=== PATIENT | male | born 1995 | race Caucasian/White ===

== ENCOUNTER 2020-01-04 11:27 | Emergency (ER) | payer OTHER, BC, SELFPAY ==
[2020-01-04 11:29] VITALS: BP 147/80; PULSE 76; RESP 16; TEMP 36.6; O2SAT 100; BMI 29.5
[2020-01-04 11:35] VITALS: BMI 29.7
--- NOTE | 2020-01-04 11:36 | XR_ITS ---
PROCEDURE: XR HAND LT MIN 3V CLINICAL INDICATION: smacked hand Posttraumatic pain COMPARISON: No exams were available for comparison FINDINGS: No fracture or dislocation. No lytic or blastic change. There is normal mineralization. The joint spaces are well-preserved. No significant degenerative/arthritic changes. No erosive changes evident. Other findings:None. IMPRESSION: No acute findings. Dictated by: Brandyn Person MD 01/04/2020 13:04 Brandyn Person MD in [place] 01/04/2020 13:04
--- NOTE | 2020-01-04 11:51 | HMH.EDGENADL ---
ED Disposition Clinical Impression: Contusion of left hand Qualifiers: Encounter type: initial encounter Qualified Code(s): S60.222A - Contusion of left hand, initial encounter Disposition: Home, Self-Care Condition on Discharge: Good Instructions: DI for Hand Injury Referrals: PCP,Barbara [Primary Care Provider] - Time of Disposition: 12:46 - Critical Care Critical Care Time: No Attestation: On 01/04/20, the high probability of a clinically significant, sudden or life threatening deterioration of the following system(s) required my full and direct attention, intervention and personal management. The time I documented below is in addition to time spent performing reported procedures but includes the following listed in this critical care notation. Medical Decision Making - Medical Records Medical records reviewed: Yes: I reviewed the patient's medical records. - [place] Inquiry Pt receiving controlled substance: No Vital Signs: 01/04/20 11:29 01/04/20 11:59 Temperature 98 F Temperature Source Temporal Artery Scan Pulse Rate [Right] 76 73 Respiratory Rate 16 Blood Pressure [Right Arm] 147/80 H 132/81 Blood Pressure Mean [Right Arm] 102 98 Blood Pressure Source [Right Arm] Automatic Cuff Automatic Cuff Blood Pressure Position [Right Arm] Sitting Sitting 02 Sat by Pulse Oximetry 100 99 Oxygen Delivery Method Room Air Orders (Tests/Meds): ORDERS Category Date Time Status Hand XR left minimum 3 views [XR hand LT min 3V] Stat Exams 01/04/20 11:36 Taken - Radiology Data #1 Image(s): Hand Image Reviewed: Yes I reviewed the patient's radiology image Preliminary Findings: Normal/NAD Osseous structures unremarkable. Particularly no abnormality of the third or fourth metacarpals. No significant joint deformity. No fracture or dislocation. Medical Decision Narrative: In summary this is a 24-year-old male presenting to the emergency department with an injury to his left hand. Patient is overall well-appearing on arrival to the emergency department. Vital signs are stable. Differential diagnoses include metacarpal fracture or contusion. Plan to obtain x-rays and reassess. X-rays unremarkable. No fracture or dislocation. Patient instructed that he likely has a contusion, sprain, strain. May take Tylenol and ibuprofen. Stable for discharge. General Adult HPI - General Chief complaint: PAIN Stated complaint: left hand AO hit on desk 01/03/20 4:00 pm Time Seen by Provider: 01/04/20 11:43 Mode of Arrival: Ambulatory Limitations: No Limitations Description of Symptoms (Recalled from ER Triage Doc. by RN): Pt advises he smacked the counter at work yesterday working and has is having increased pain in it today - History of Present Illness HPI narrative: 24 year old ambidextrous male presenting to the emergency department with an injury to his left hand. Patient was at work earlier today when the back of his left hand struck against a hard piece of equipment. He had immediate pain over the dorsal aspect. Pain radiated into his middle and ring fingers. He had difficulty moving his fingers. No pain with wrist motion. No breaks in the skin. Has not taken any medications for pain. - Related Data Home Medications Medication Instructions Recorded Confirmed No Known Home Medications 01/04/20 01/04/20 Allergies Allergy/AdvReac Type Severity Reaction Status Date / Time cefaclor [From [facility]] Allergy Mild Verified 01/04/20 11:40 [facility] History - Hepatitis A Screen Drug use history?: No High risk sexual behaviors?: No History of sexually transmitted infection?: No Currently employed?: No Childcare worker?: No Do you have indoor plumbing?: Yes Do you have electricity?: Yes Attestation statement:: This patient has been screened for Hepatitis A risk factors. - Social History Alcohol Intake: never Occupational Status: employed ROS Obtained: Yes All systems reviewed & no
[2020-01-04 11:59] VITALS: BP 132/81; PULSE 73; O2SAT 99
[2020-01-04 13:35] VITALS: BP 120/87; PULSE 80; RESP 17; TEMP 36.7; O2SAT 100
== END 2020-01-04 13:35 | disposition home or self-care (01) ==
PROVIDERS: Emergency Provider Emergency Medicine
DX: S60.222A Contusion of left hand, initial encounter (principal); W22.8XXA Striking against or struck by other objects, initial encounter; Y92.69 Other specified industrial and construction area as the place of occurrence of the external cause; Y99.0 Civilian activity done for income or pay; Z88.1 Allergy status to other antibiotic agents
CPT/HCPCS: 73130; 99282

== ENCOUNTER 2020-07-07 15:24 | Emergency (ER) | payer BC, SELFPAY ==
[2020-07-07 15:50] VITALS: BP 146/80; PULSE 91; RESP 16; TEMP 36.9; O2SAT 96; BMI 31.6
--- NOTE | 2020-07-07 16:06 | HMH.EDUTC ---
[facility] [place] Dis[place] Clinical Impression: Influenza A, COVID-19 virus RNA test result unknown Disposition: Home, Self-Care Condition on Discharge: Good Instructions: Influenza, DI for Influenza -- Adult, DI for COVID-19 (Suspected or Confirmed ), Preventing the Spread of Coronavirus Discharge Instructions Additional Instructions: No sign of a bacterial infection. Likely viral. Viruses can take 7-14 days to run their course. Nasal saline and bulb syringe or nose Brenda to remove nasal drainage to help with nasal congestion. Hard to eat, drink, sleep with nasal congestion so important to keep this cleaned out. Monitor temp. Tylenol or Motrin as needed for pain or fever Encourage fluids, water, Gatorade, Powerade, Pedialyte if infant/toddler/child Warm salt water gargles Warm fluids Sore throat lozenges Sleep elevated Humidifier/vaporizer Your throat swab was sent for culture. covid swab was sent self siolate until test results are known to be neg Follow-up immediately for new or worsening symptoms or no noticeable improvement over the next 48-72 hours. Referrals: PCP,No [Primary Care Provider] - Forms: Work/School Release Time of Disposition: 16:12 Medical Decision Making - [place] Inquiry Pt receiving controlled substance: No Vital Signs: 07/07/20 15:50 Temperature 98.5 F Temperature Source Oral Pulse Rate [Right] 91 H Respiratory Rate 16 Blood Pressure [Right Arm] 146/80 H Blood Pressure Mean [Right Arm] 102 Blood Pressure Source [Right Arm] Automatic Cuff Blood Pressure Position [Right Arm] Sitting 02 Sat by Pulse Oximetry 96 Oxygen Delivery Method Room Air Orders (Tests/Meds): ORDERS Category Date Time Status Covid-19 Nasal PCR ([facility]) Routine Lab 07/07/20 15:28 Ordered [facility] [place] HPI - General Chief complaint: Urgent Treatment Center Stated complaint: covid test Time Seen by Provider: 07/07/20 16:06 Mode of Arrival: Ambulatory Source of Information: Patient Limitations: No Limitations Description of Symptoms (Recalled from Triage Doc. by RN): PT IS HAVING DIZZINESS, COUGH, NASAL CONGESTION, DIARHEA AND A SORE THROAT. HEENT Symptoms (Recalled from RN notes): Yes (SORE THROAT) Resp Symptoms (Recalled from RN notes): Yes (COUGH) Skin Symptoms (Recalled from RN notes): No MS Symptoms (Recalled from RN notes): No Functional Status (Recalled from RN notes): NA - History of Present Illness Provider Complaint: 24 yr old female presents for cough, sore throat, body aches, headache, nausea and diarrhea for 3 days. - Related Data Home Medications Medication Instructions Recorded Confirmed No Known Home Medications 01/04/20 01/04/20 Allergies Allergy/AdvReac Type Severity Reaction Status Date / Time cefaclor [From [facility]] Allergy Mild Verified 07/07/20 15:56 - Worker's Comp Is this a Worker's Comp case?: No [facility] History - Hepatitis A Screen Drug use history?: No High risk sexual behaviors?: No History of sexually transmitted infection?: No Currently employed?: No Childcare worker?: No Do you have indoor plumbing?: Yes Do you have electricity?: Yes Attestation statement:: This patient has been screened for Hepatitis A risk factors. I have reviewed the patient's past medical history: Yes - Social History Smoking Status: Current every day smoker Tobacco Type: e-cigarettes # Packs/Day (cigarettes): 1 Alcohol Intake: never Occupational Status: employed ROS Obtained: Yes Systems reviewed as appropriate & no additional complaints - Constitutional Constitutional: Reports system reviewed and no additional complaints, except as docu, Reports body ache, Reports chills, Reports fatigue, Reports fever(s) - Eyes Eyes: Reports system reviewed and no additional complaints, except as docu, Denies dry eyes - ENT Ears, Nose, Mouth, and Throat: Reports system reviewed and no additional complaints, except as docu, Reports dizziness, Reports ear discharge, Denies facial pain, Reports
[2020-07-07 16:51] VITALS: BP 140/78; PULSE 98; RESP 16; TEMP 36.7
[2020-07-08 10:13] LABS: UTC Strep Screen (Rapid) Negative (Negative)
[2020-07-08 10:14] LABS: UTC Influenza A Antigen Negative (Negative); UTC Influenza B Antigen Negative (Negative)
--- NOTE | 2020-07-08 10:19 | PC.NURSE ---
PATIENT FLU A POSITIVE, DOCUMENTED IN CHART NEG
== END 2020-07-07 16:52 | disposition home or self-care (01) ==
PROVIDERS: Emergency Provider Nurse Practitioner Family
DX: J10.1 Influenza due to other identified influenza virus with other respiratory manifestations (principal); Z20.822 Contact with and (suspected) exposure to COVID-19; F17.290 Nicotine dependence, other tobacco product, uncomplicated
CPT/HCPCS: 87804; 87880; 99202; G0463; U0003

== ENCOUNTER → 2020-08-27 17:49 | Outpatient (CLI) | payer BC, SELFPAY ==
[2020-08-27 18:31] LABS: Basophils % 0.4 % (0.1-2.0); Eosinophils # 0.2 K/mm3 (0.0-0.4); Eosinophils % 1.6 % (0.1-12.0); Hematocrit 44.6 % (42.0-52.0); Hemoglobin 14.4 g/dL (14.1-18.0); Lymphocytes % 20.9 % (10-50); Mean Corpuscular HGB Conc 32.2 g/dL (31.8-35.4); Mean Corpuscular Volume 89.9 fl (80-94); Mean Platelet Volume 7.9 fl (7.4-10.4); Monocytes # 0.8 K/mm3 (0.1-1.0); Monocytes % 8.8 % (1.7-9.3); Neutrophils # 6.4 K/mm3 (1.8-7.8); Neutrophils % 68.3 % (37.0-80.0); Platelet Count 288 K/mm3 (142-424); Red Blood Count 4.96 M/mm3 (4.60-6.20); Red Cell Distribution Width 12.4 % (11.5-17.5); White Blood Count 9.4 K/mm3 (4.8-10.8)
[2020-08-27 18:47] LABS: Alanine Aminotransferase 16 U/L (12-78); Albumin Level 4.9 g/dl (3.5-5.0); Albumin/Globulin Ratio 1.7 (1.1-1.8); Alkaline Phosphatase 72 U/L (38-126); Anion Gap 9.8 mEq/L (5-15); Aspartate Amino Transferase 28 U/L (17-59); Bilirubin,Total 0.3 mg/dl (0.2-1.3); Blood Urea Nitrogen 16 mg/dl (9-20); Calcium 10.3 mg/dl (8.4-10.2); Carbon Dioxide 29 mmol/L (22.0-30.0); Chloride 106 mmol/L (98-107); Estimated Glomerular Filt Rate 92 ml/min (>60); GFR (African American) 111 ML/MIN (>60); Globulin 2.9 g/dL (1.3-3.2); Glucose 76 mg/dl (74-100); Potassium 4.8 mmoL/L (3.5-5.1); Sodium 140 mmol/L (136-145); Total Protein,Serum 7.8 g/dl (6.3-8.2)
[2020-08-27 19:15] LABS: Thyroid Stimulating Hormone 2.62 uIU/mL (0.465-4.68)
[2020-08-31 13:40] LABS: H. pylori Breath Test Negative (Negative)
== END ==
LOC: LAB 17:49
PROVIDERS: Visit Provider Nurse Practitioner Family
DX: R10.9 Unspecified abdominal pain (principal); R53.83 Other fatigue
CPT/HCPCS: 36415; 80053; 83013; 84436; 84443; 85025

== ENCOUNTER → 2020-08-28 09:50 | Outpatient (CLI) | payer BC, SELFPAY ==
[2020-08-28 09:52] LABS: Adenovirus F 40/41, stool Not Detected (NotDetected); Astrovirus Not Detected (NotDetected); Campylobacter Not Detected (NotDetected); Clostridium Difficile A/B, PCR Not Detected (NotDetected); Cryptosporidium Not Detected (NotDetected); Cyclospora Cayetanesis Not Detected (NotDetected); Entamoeba histolytica Not Detected (NotDetected); Enteroaggregative E coli Not Detected (NotDetected); Enteropathogenic E coli Not Detected (NotDetected); Enterotoxigenic E coli Not Detected (NotDetected); Giardia lamblia Not Detected (NotDetected); Norovirus Not Detected (NotDetected); Plesimonas Shigalloides, PCR Not Detected (NotDetected); Rotavirus A Not Detected (NotDetected); Salmonella, PCR Not Detected (NotDetected); Sapovirus Not Detected (NotDetected); Shiga-like toxin E coli Not Detected (NotDetected); Shigella Enterovasive E coli Not Detected (NotDetected); Vibrio Cholerae Not Detected (NotDetected); Vibrio, PCR Not Detected (NotDetected); Yersinia Entercolitica, PCR Not Detected (NotDetected)
== END ==
PROVIDERS: Visit Provider Nurse Practitioner Family
DX: R19.7 Diarrhea, unspecified (principal)
CPT/HCPCS: 87506

== ENCOUNTER 2020-09-28 15:44 | Emergency (ER) | payer BC, SELFPAY ==
[2020-09-28 15:48] VITALS: BP 148/82; PULSE 104; RESP 19; TEMP 36.8; O2SAT 99; BMI 27.4
[2020-09-28 16:20] VITALS: BP 148/82; PULSE 104; RESP 19; TEMP 36.8; O2SAT 99
--- NOTE | 2020-09-28 16:45 | HMH.EDUTC ---
[facility] – [place] Disposition Clinical Impression: Pharyngitis Qualifiers: Pharyngitis/tonsillitis etiology: unspecified etiology Qualified Code(s): J02.9 - Acute pharyngitis, unspecified Irritable bowel syndrome Qualifiers: Irritable bowel syndrome type: unspecified Qualified Code(s): K58.9 - Irritable bowel syndrome without diarrhea Disposition: Home, Self-Care Condition on Discharge: Good Instructions: DI for Pharyngitis/Tonsillopharyngitis -- Adult, DI for Irritable Bowel Syndrome Additional Instructions: Drink plenty of fluids. Take tylenol or ibuprofen for pain or fever. Take the medications as directed. Follow up with your regular doctor. GO TO THE ER FOR ANY WORSENING SYMPTOMS Follow up with GI as scheduled. Prescriptions: Ondansetron [Zofran 4mg ODT] 4 mg PO Q8HP PRN #20 tab.rapdis PRN Reason: Nausea Transmission Status: Received by [id number] Dicyclomine HCl [Bentyl 10mg capsule] 10 mg PO BIDP PRN #30 cap PRN Reason: Cramping Transmission Status: Received by [id number] Referrals: Cece Dillard APRN [Primary Care Provider] - Forms: Work/School Release Time of Disposition: 17:02 Medical Decision Making - Medical Records Medical records reviewed: No: I reviewed the patient's medical records. - [place] Inquiry Pt receiving controlled substance: No Vital Signs: 09/28/20 15:48 09/28/20 16:20 Temperature 98.3 F 98.3 F Temperature Source Oral Pulse Rate 104 H Pulse Rate [Left] 104 H Respiratory Rate 19 19 Blood Pressure 148/82 H Blood Pressure [Right Arm] 148/82 H Blood Pressure Mean [Right Arm] 104 02 Sat by Pulse Oximetry 99 - Lab Data Lab results reviewed: Yes: I reviewed the patient's lab results. Lab Results 09/28/20 16:20: Strep Scn Rapid Clinic Negative Orders (Tests/Meds): ORDERS Category Date Time Status Strep Screen Confirmation Stat Micro 09/28/20 16:20 Received [facility] – [place] HPI - General Stated complaint: stomach issues, congestion Time Seen by Provider: 09/28/20 16:45 Mode of Arrival: Ambulatory Source of Information: Patient Limitations: No Limitations Description of Symptoms (Recalled from Triage Doc. by RN): Pt states that he has been seein Cece for stomach issues and he is still having trouble with constipation and diarrhea. Pt also c/o headaches, cough and congestion. HEENT Symptoms (Recalled from RN notes): No Resp Symptoms (Recalled from RN notes): Yes Skin Symptoms (Recalled from RN notes): No MS Symptoms (Recalled from RN notes): No Functional Status (Recalled from RN notes): wnl - History of Present Illness Provider Complaint: He c/o sore throat for the past 2 days. HE has had long standing issues with nausea/diarrhea/constipation. He has an appt with a GI doctor at coming up in December. - Related Data Previous Rx's Medication Instructions Recorded Dicyclomine HCl [Bentyl 10mg 10 mg PO BIDP PRN #30 cap 09/28/20 capsule] Ondansetron [Zofran 4mg ODT] 4 mg PO Q8HP PRN #20 tab.rapdis 09/28/20 Allergies Allergy/AdvReac Type Severity Reaction Status Date / Time cefaclor [From [facility]] Allergy Mild Verified 09/28/20 16:19 - Worker's Comp Is this a Worker's Comp case?: No [facility] History - Hepatitis A Screen Drug use history?: No High risk sexual behaviors?: No History of sexually transmitted infection?: No Currently employed?: No Childcare worker?: No Do you have indoor plumbing?: Yes Do you have electricity?: Yes Attestation statement:: This patient has been screened for Hepatitis A risk factors. I have reviewed the patient's past medical history: Yes Laterality Cases: Bilateral: Tonsillectomy - Social History Smoking Status: Never smoker Tobacco Type: cigarettes # Packs/Day (cigarettes): 1 Alcohol Intake: never Occupational Status: employed Family Hx:: Cancer, Diabetes ROS Obtained: Yes All systems reviewed & no additional complaints - Constitutional Constitu
[2020-09-28 17:06] LABS: UTC Strep Screen (Rapid) Negative (Negative)
== END 2020-09-28 17:07 | disposition home or self-care (01) ==
PROVIDERS: Emergency Provider Nurse Practitioner Family; PCP Nurse Practitioner Family
DX: J02.9 Acute pharyngitis, unspecified (principal); K58.9 Irritable bowel syndrome, unspecified; Z20.822 Contact with and (suspected) exposure to COVID-19
CPT/HCPCS: 87880; 99202; G0463; U0003

== ENCOUNTER 2020-10-21 12:27 | Emergency (ER) | payer BC, SELFPAY ==
[2020-10-21 12:27] VITALS: BP 112/74; PULSE 78; RESP 16; TEMP 36.7; O2SAT 98; BMI 276700.2
[2020-10-21 12:30] VITALS: BP 129/72; PULSE 65; RESP 19; TEMP 37; O2SAT 99; BMI 27.6
--- NOTE | 2020-10-21 12:50 | HMH.EDUTC ---
[facility] – [place] Disposition Clinical Impression: Abdominal pain Qualifiers: Abdominal location: left lower quadrant Qualified Code(s): R10.32 - Left lower quadrant pain Disposition: Still a Patient Condition on Discharge: Fair Referrals: Cece Dillard APRN [Primary Care Provider] - Time of Disposition: 13:18 Medical Decision Making - Medical Records Medical records reviewed: No: I reviewed the patient's medical records. - [place] Inquiry Pt receiving controlled substance: No Vital Signs: 10/21/20 12:30 Temperature 98.6 F Temperature Source Oral Pulse Rate [Right Brachial] 65 Respiratory Rate 19 Blood Pressure [Right Arm] 129/72 Blood Pressure Mean [Right Arm] 91 Blood Pressure Source [Right Arm] Automatic Cuff Blood Pressure Position [Right Arm] Sitting 02 Sat by Pulse Oximetry 99 Oxygen Delivery Method Room Air Orders (Tests/Meds): ORDERS Category Date Time Status Amylase Stat Lab 10/21/20 13:07 Ordered Complete Blood Count Auto Diff Stat Lab 10/21/20 13:07 Ordered Comprehensive Metabolic Panel Stat Lab 10/21/20 13:07 Ordered Lipase Stat Lab 10/21/20 13:07 Ordered [facility] [place] HPI - General Stated complaint: nausea, Lt side pain Time Seen by Provider: 10/21/20 12:52 - History of Present Illness Provider Complaint: He has a history of chronic gi issues. He states that for the past 3 days he has had left sided abdominal pain and tenderness. He has these symptoms often, but he states that this time they are much worse than they normally are. He has been taking bentyl with no relief. He has also had nauesea/vomiting. He has taken zofran and it has helped that symptom. He denies any fever/chills/body aches. He has had diarrhea, but he has chronic diarrhea. - Related Data Previous Rx's Medication Instructions Recorded Dicyclomine HCl [Bentyl 10mg 10 mg PO BIDP PRN #30 cap 09/28/20 capsule] Ondansetron [Zofran 4mg ODT] 4 mg PO Q8HP PRN #20 tab.rapdis 09/28/20 Allergies Allergy/AdvReac Type Severity Reaction Status Date / Time cefaclor [From [facility] [place]] Allergy Mild Verified 09/28/20 16:19 [facility] History - Hepatitis A Screen Attestation statement:: This patient has been screened for Hepatitis A risk factors. I have reviewed the patient's past medical history: Yes Laterality Cases: Bilateral: Tonsillectomy - Social History Smoking Status: Never smoker Tobacco Type: cigarettes # Packs/Day (cigarettes): 1 Alcohol Intake: never Occupational Status: employed Family Hx:: Cancer, Diabetes ROS Obtained: Yes All systems reviewed & no additional complaints - Constitutional Constitutional: Denies chills, Denies fever(s), Reports poor appetite, Reports malaise - Eyes Eyes: Denies eye discharge - ENT Ears, Nose, Mouth, and Throat: Denies dizziness, Denies otalgia, Denies sore throat, Denies vertigo/dizziness - Respiratory Respiratory: Denies chest congestion, Denies cough, Denies dyspnea, Denies stridor, Denies wheezing - Gastrointestinal Gastrointestingal: Reports: as per HPI Physical Exam - General General appearance: alert, in no apparent distress - Head Head exam: atraumatic, normocephalic, normal inspection - Eye Eye exam: Present: normal appearance, PERRL, EOMI - ENT ENT exam: Present: normal exam, normal oropharynx, mucous membranes moist, TM's normal bilaterally, normal external ear exam - Neck Neck exam: Present: normal inspection, full ROM, trachea midline. Absent: meningismus, lymphadenopathy - Chest Chest inspection: Present: normal inspection, symmetric chest wall rise. Absent: tenderness - Respiratory Respiratory exam: Present: normal lung sounds bilaterally. Absent: respiratory distress - Cardiovascular Cardiovascular exam: Present: regular rate, normal rhythm. Absent: JVD - Abdominal Exam Abdominal exam: Present: soft, tenderness, normal bowel sounds. Absent: distention, guarding, rebound, rigidity, psoas sign, obturator sign, heel tap s
--- NOTE | 2020-10-21 13:18 | CT_ITS ---
PROCEDURE: CT ABDOMEN PELVIS W CON CLINICAL INDICATION: ABD PAIN Abdominal pain with nausea vomiting and diarrhea COMPARISON: No exams were available for comparison TECHNIQUE: IV Contrast: 75ML Isovue 370 Oral Contrast None Axial images obtained with sagittal and coronal reformats. All CT scans at the facility use one or more dose reduction, viz: automated exposure control, ma/kV adjustment per patient size (including targeted exams where dose is matched to indication, i.e. head), or iterative reconstruction technique. FINDINGS: LOWER THORAX: Patchy density left lung base posterior laterally nonspecific. ABDOMEN & PELVIS: The liver, spleen, adrenal glands, pancreas, and kidneys have an unremarkable appearance. No radiopaque gallstones are apparent. No intestinal obstruction or free air. No evidence of appendicitis. No pelvic mass or abnormal fluid collection. No acute bony findings. IMPRESSION: No acute abdominal or pelvic findings. Patchy ground-glass attenuation in the left lower lobe posterior laterally nonspecific and could be related to small area of atelectasis or patchy infiltrate Dictated by: Brandyn Person MD 10/21/2020 13:46 Brandyn Person MD in [place] 10/21/2020 13:46
--- NOTE | 2020-10-21 13:25 | PC.NURSE ---
PATIENT SENT TO ER PER Liliana ORTEGA APRN. REPORT GIVEN TO Carole CRAIN RN
[2020-10-21 13:33] LABS: Basophils % 0.4 % (0.1-2.0); Eosinophils # 0.2 K/mm3 (0.0-0.4); Eosinophils % 2.5 % (0.1-12.0); Hematocrit 46.3 % (42.0-52.0); Hemoglobin 15.6 g/dL (14.1-18.0); Lymphocytes # 1.2 K/mm3 (0.7-4.5); Lymphocytes % 17.8 % (10-50); Mean Corpuscular HGB Conc 33.6 g/dL (31.8-35.4); Mean Corpuscular Hemoglobin 29.9 pg (27.0-31.2); Mean Corpuscular Volume 88.9 fl (80-94); Mean Platelet Volume 7.7 fl (7.4-10.4); Monocytes # 0.5 K/mm3 (0.1-1.0); Monocytes % 7.8 % (1.7-9.3); Neutrophils # 4.9 K/mm3 (1.8-7.8); Neutrophils % 71.5 % (37.0-80.0); Platelet Count 275 K/mm3 (142-424); Red Blood Count 5.21 M/mm3 (4.60-6.20); Red Cell Distribution Width 12.5 % (11.5-17.5); White Blood Count 6.8 K/mm3 (4.8-10.8)
[2020-10-21 13:33] LABS: Microscopic, Urine URINE MICROSCOPIC (MICROSCOPIC)
[2020-10-21 13:35] LABS: Alanine Aminotransferase 24 U/L (12-78); Albumin Level 4.9 g/dl (3.5-5.0); Albumin/Globulin Ratio 1.4 (1.1-1.8); Alkaline Phosphatase 94 U/L (38-126); Amylase 72 U/L (30-110); Anion Gap 11.3 mEq/L (5-15); Aspartate Amino Transferase 37 U/L (17-59); Bilirubin,Total 0.8 mg/dl (0.2-1.3); Blood Urea Nitrogen 14 mg/dl (9-20); Calcium 9.7 mg/dl (8.4-10.2); Carbon Dioxide 29 mmol/L (22.0-30.0); Chloride 105 mmol/L (98-107); Creatinine Clearance Estimated 148 mL/min (50-200); Estimated Glomerular Filt Rate 104 ml/min (>60); GFR (African American) 125 ML/MIN (>60); Globulin 3.4 g/dL (1.3-3.2); Glucose 102 mg/dl (74-100); Lipase 29 U/L (23-300); Potassium 4.3 mmoL/L (3.5-5.1); Sodium 141 mmol/L (136-145); Total Protein,Serum 8.3 g/dl (6.3-8.2)
--- NOTE | 2020-10-21 13:35 | HMH.EDGENADL ---
ED Disposition Clinical Impression: Irritable bowel syndrome Qualifiers: Irritable bowel syndrome type: with both diarrhea and constipation Qualified Code(s): K58.2 - Mixed irritable bowel syndrome Disposition: Home, Self-Care Condition on Discharge: Good Instructions: DI for Irritable Bowel Syndrome Additional Instructions: Follow-up with your primary care provider for management until you are seen by gastroenterology at [facility] in December. Referrals: Cece Dillard APRN [Primary Care Provider] - - Critical Care Critical Care Time: No Attestation: On 10/21/20, the high probability of a clinically significant, sudden or life threatening deterioration of the following system(s) required my full and direct attention, intervention and personal management. The time I documented below is in addition to time spent performing reported procedures but includes the following listed in this critical care notation. Medical Decision Making - Medical Records Medical records reviewed: Yes: I reviewed the patient's medical records. MR Comment: Reviewed recent hospital and office visits. Seen in his primary care provider's office on 08/27/2020 for loss of appetite and diarrhea. Thyroid panel CBC, H. pylori breath test, and diarrhea panel ordered. Work-up negative. Seen in the office again on 09/10/2020. Lower abdominal pain and now with constipation rather than diarrhea. Also had anxiety. Refer to behavioral health and gastroenterology. Seen in the urgent treatment center here on 09/28/2020. Sore throat along with nausea, diarrhea, constipation. Diagnosed with irritable bowel syndrome and recommended to keep his appointment with gastroenterology at [facility] in December. Prescribed Zofran and Bentyl. - [place] Inquiry Pt receiving controlled substance: No Vital Signs: 10/21/20 12:30 Temperature 98.6 F Temperature Source Oral Pulse Rate [Right Brachial] 65 Respiratory Rate 19 Blood Pressure [Right Arm] 129/72 Blood Pressure Mean [Right Arm] 91 Blood Pressure Source [Right Arm] Automatic Cuff Blood Pressure Position [Right Arm] Sitting 02 Sat by Pulse Oximetry 99 Oxygen Delivery Method Room Air - Lab Data Lab Results 10/21/20 13:15: WBC 6.8, RBC 5.21, Hgb 15.6, Hct 46.3, MCV 88.9, MCH 29.9, MCHC 33.6, RDW 12.5, Plt Count 275, MPV 7.7, Neut % (Auto) 71.5, Lymph % (Auto) 17.8, [place] % (Auto) 7.8, Eos % (Auto) 2.5, Baso % (Auto) 0.4, Neut # (Auto) 4.9, Lymph # (Auto) 1.2, [place] # (Auto) 0.5, Eos # (Auto) 0.2, Baso # (Auto) 0.0 10/21/20 13:15: Sodium 141, Potassium 4.3, Chloride 105, Carbon Dioxide 29, Anion Gap 11.3, BUN 14, Creatinine 0.90, Estimated Creat Clear 148, Estimated GFR 104, Est GFR ( Amer) 125, Glucose 102 H, Calcium 9.7, Total Bilirubin 0.8, AST 37, ALT 24, Alkaline Phosphatase 94, Total Protein 8.3 H, Albumin 4.9, Globulin 3.4 H, Albumin/Globulin Ratio 1.4, Amylase 72, Lipase 29 10/21/20 13:30: Urine Color Yellow, Urine Appearance Clear, Urine pH 8.0, Ur Specific [place] 1.010, Urine Protein Negative, Urine Glucose (UA) Negative, Urine Ketones Negative, Urine Blood Negative, Urine Nitrate Negative, Urine Bilirubin Negative, Urine Urobilinogen 1.0, Ur Leukocyte Esterase Negative, Urine RBC Occasional, Urine WBC Occasional, Ur Squamous Epith Cells None, Urine Bacteria Trace Result diagrams: 10/21/20 13:15 10/21/20 13:15 Orders (Tests/Meds): ED MEDICATIONS Discontinued Medications Generic Name Dose Route Start Last Admin Trade Name Freq PRN Reason Stop Dose Admin Iopamidol 75 ml 10/21/20 13:31 10/21/20 13:32 Iopamidol-370 (76%);100ml Bottle IV 10/21/20 13:32 75 ml ONCE ONE Administration Sodium Chloride 10 ml 10/21/20 13:31 10/21/20 13:32 Sodium Chloride 0.9% 10ml Syr (Rad Only) IV 10/21/20 13:32 10 ml ONCE ONE Administration - CT Data CT Scan: Abdomen, Pelvis Time Received: 13:[address] Reviewed: Yes: I have viewed the radiologist's interpretat
--- NOTE | 2020-10-21 13:38 | PC.NURSE ---
Pt back from radiology
[2020-10-21 13:41] LABS: Appearance,Urine CLEAR (Clear); Bilirubin,Urine Negative (Negative); Blood, Urine Negative (Negative); Color,Urine YELLOW (Yellow); Glucose,Urine (UA) Negative (Negative); Ketones,Urine Negative (Negative); Leukocyte Esterase,Urine Negative (Negative); Nitrate,Urine Negative (Negative); Protein,Urine Negative (Negative)
[2020-10-21 13:56] LABS: WBC,Urine Occasional #/hpf (0-3)
[2020-10-21 13:57] LABS: Bacteria,Urine Trace /lpf; RBC,Urine Occasional #/hpf (0-3)
[2020-10-21 14:23] VITALS: BP 132/74; PULSE 78; RESP 16; TEMP 36.6; O2SAT 98
== END 2020-10-21 14:24 | disposition home or self-care (01) ==
LOC: UTC 12:30 → ER 13:17
PROVIDERS: Emergency Medicine; Emergency Provider Nurse Practitioner Family; PCP Nurse Practitioner Family
DX: K58.2 Mixed irritable bowel syndrome (principal)
CPT/HCPCS: 74177; 80053; 81001; 82150; 83690; 85025; 99283; Q9967

== ENCOUNTER → 2020-12-21 15:16 | Outpatient (POV) | payer BC, SELFPAY | PROVIDERS: Visit Provider Nurse Practitioner Family | DX: Z00.00 Encounter for general adult medical examination without abnormal findings (principal) ==

== ENCOUNTER 2021-01-08 15:47 | Emergency (ER) | payer BC, SELFPAY ==
[2021-01-08 18:30] VITALS: BP 134/75; PULSE 69; RESP 19; TEMP 37.1; O2SAT 99; BMI 19.3
--- NOTE | 2021-01-08 19:01 | HMH.EDUTC ---
[facility] [place] Clinical Impression: Exposure to COVID-19 virus, Viral syndrome Disposition: Home, Self-Care Condition on Discharge: Good Instructions: DI for Viral Syndrome, DI for COVID-19 (Suspected or Confirmed ), Preventing the Spread of Coronavirus Discharge Instructions Additional Instructions: Drink plenty of fluids. Take tylenol for pain or fever. Return if you begin to have difficulty breathing. Follow up with your regular doctor. GO TO THE ER FOR ANY WORSENING SYMPTOMS Quarantine until you know the results of your covid-19 test. If it is positive, the health department should call you and give you further instructions about your length of Quarantine and other things. Notify your school or workplace of your results and follow their instructions regarding return to work/school. Prescriptions: Brompheniramine/Pseudoephed/Dm [Bromfed Dm Cough Syrup] 5 ml PO Q6HP PRN #240 syrup PRN Reason: Cough Transmission Status: Received by [id number] predniSONE [Deltasone 10mg tablet] 10 mg PO BID 5 Days #10 tab Transmission Status: Received by [id number] Azithromycin [Z-Richard 250mg Tab*] 250 mg PO UD DOSE PK #6 tab Transmission Status: Received by [id number] Referrals: Cece Dillard APRN [Primary Care Provider] - Forms: Work/School Release Time of Disposition: 19:09 Medical Decision Making - Medical Records Medical records reviewed: No: I reviewed the patient's medical records. - [place] Inquiry Pt receiving controlled substance: No Vital Signs: 01/08/21 18:30 01/08/21 19:13 Temperature 98.8 F 98.8 F Temperature Source Oral Pulse Rate 69 Pulse Rate [Right Brachial] 69 Respiratory Rate 19 19 Blood Pressure 134/75 Blood Pressure [Right Arm] 134/75 Blood Pressure Mean [Right Arm] 94 Blood Pressure Source [Right Arm] Automatic Cuff Blood Pressure Position [Right Arm] Sitting 02 Sat by Pulse Oximetry 99 Oxygen Delivery Method Room Air [facility] [place] HPI - General Stated complaint: covid test Time Seen by Provider: 01/08/21 19:01 Mode of Arrival: Ambulatory Source of Information: Patient Limitations: No Limitations Description of Symptoms (Recalled from Triage Doc. by RN): COVID TEST D/T EXPOSURE HEENT Symptoms (Recalled from RN notes): No Resp Symptoms (Recalled from RN notes): No Skin Symptoms (Recalled from RN notes): No MS Symptoms (Recalled from RN notes): No Functional Status (Recalled from RN notes): WNL - History of Present Illness Provider Complaint: He was exposed to covid last week, He denies any symptoms, but he needs to be tested due to his work - Related Data Previous Rx's Medication Instructions Recorded Dicyclomine HCl [Bentyl 10mg 10 mg PO BIDP PRN #30 cap 09/28/20 capsule] albuterol sulfate 90 mcg/actuation 1 puff INHALATION Q6H #6.7 g 10/21/20 aerosol inhaler omeprazole magnesium 20 mg 20 mg PO DAILY #30 tab 11/01/20 tablet,delayed release ondansetron 4 mg disintegrating 4 mg PO Q8HP PRN #20 tab.rapdis 11/25/20 tablet Azithromycin [Z-Richard 250mg Tab*] 250 mg PO UD DOSE PK #6 tab 01/08/21 Brompheniramine/Pseudoephed/Dm 5 ml PO Q6HP PRN #240 syrup 01/08/21 [Bromfed Dm Cough Syrup] predniSONE [Deltasone 10mg tablet] 10 mg PO BID 5 Days #10 tab 01/08/21 Allergies Allergy/AdvReac Type Severity Reaction Status Date / Time cefaclor [From [facility]] Allergy Mild Verified 11/25/20 15:21 - Worker's Comp Is this a Worker's Comp case?: No H History - Hepatitis A Screen Drug use history?: No High risk sexual behaviors?: No History of sexually transmitted infection?: No Currently employed?: No Childcare worker?: No Do you have indoor plumbing?: Yes Do you have electricity?: Yes Attestation statement:: This patient has been screened for Hepatitis A risk factors. I have reviewed the patient's past medical history: Yes Laterality Cases: Bilateral: Tonsillectomy - Social History Smoking Status: Never s
[2021-01-08 19:13] VITALS: BP 134/75; PULSE 69; RESP 19; TEMP 37.1; O2SAT 99
== END 2021-01-08 19:19 | disposition home or self-care (01) ==
PROVIDERS: Emergency Provider Nurse Practitioner Family; PCP Nurse Practitioner Family
DX: Z20.822 Contact with and (suspected) exposure to COVID-19 (principal); B34.9 Viral infection, unspecified
CPT/HCPCS: 99202; G0463; U0003

== ENCOUNTER 2021-02-01 12:46 | Emergency (ER) | payer BC, SELFPAY ==
[2021-02-01 14:01] VITALS: PULSE 78; RESP 16; TEMP 37; O2SAT 100; BMI 24.6
--- NOTE | 2021-02-01 14:06 | HMH.EDUTC ---
[facility] [place] Disposition Clinical Impression: Exposure to COVID-19 virus Pharyngitis Qualifiers: Pharyngitis/tonsillitis etiology: unspecified etiology Qualified Code(s): J02.9 - Acute pharyngitis, unspecified Disposition: Home, Self-Care Condition on Discharge: Good Instructions: DI for COVID-19 (Suspected or Confirmed ), Preventing the Spread of Coronavirus Discharge Instructions Additional Instructions: Drink plenty of fluids. Take tylenol or ibuprofen for pain or fever. Take the medications as directed. Follow up with your regular doctor. GO TO THE ER FOR ANY WORSENING SYMPTOMS Throw your tooth brush away and get a new one. Quarantine until you know the results of your covid-19 test. If it is positive, the health department should call you and give you further instructions about your length of Quarantine and other things. Notify your school or workplace of your results and follow their instructions regarding return to work/school. Prescriptions: Brompheniramine/Pseudoephed/Dm [Bromfed Dm Cough Syrup] 5 ml PO Q6HP PRN #240 ml PRN Reason: Cough Transmission Status: Received by [id number] Azithromycin [Z-Richard 250mg Tab*] 250 mg PO UD DOSE PK #6 tab Transmission Status: Received by [id number] Referrals: Cece Dillard APRN [Primary Care Provider] - Forms: Work/School Release Time of Disposition: 14:44 Medical Decision Making - Medical Records Medical records reviewed: No: I reviewed the patient's medical records. - [place] Inquiry Pt receiving controlled substance: No Vital Signs: 02/01/21 14:01 02/01/21 14:47 Temperature 98.6 F 98.6 F Temperature Source Oral Pulse Rate 74 Pulse Rate [Right] 78 Respiratory Rate 16 16 Blood Pressure 0/0 L 02 Sat by Pulse Oximetry 100 Oxygen Delivery Method Room Air Room Air - Lab Data Lab results reviewed: Yes: I reviewed the patient's lab results. Lab Results 02/01/21 14:03: Strep Scn Rapid Clinic Negative Orders (Tests/Meds): ORDERS Category Date Time Status Strep Screen Confirmation Stat Micro 02/01/21 14:03 Received [facility] [place] HPI - General Stated complaint: possible strep Time Seen by Provider: 02/01/21 14:06 Mode of Arrival: Ambulatory Source of Information: Patient Limitations: No Limitations Description of Symptoms (Recalled from Triage Doc. by RN): pt positive for strep last week and advises he feels worse this week HEENT Symptoms (Recalled from RN notes): Yes Resp Symptoms (Recalled from RN notes): No Skin Symptoms (Recalled from RN notes): No MS Symptoms (Recalled from RN notes): No Functional Status (Recalled from RN notes): na - History of Present Illness Provider Complaint: He was diagnosed with strep throat last week. He has been taking the medications as directed. He denies any known covid-19 exposure. - Related Data Previous Rx's Medication Instructions Recorded Dicyclomine HCl [Bentyl 10mg 10 mg PO BIDP PRN #30 cap 09/28/20 capsule] albuterol sulfate 90 mcg/actuation 1 puff INHALATION Q6H #6.7 g 10/21/20 aerosol inhaler omeprazole magnesium 20 mg 20 mg PO DAILY #30 tab 11/01/20 tablet,delayed release ondansetron 4 mg disintegrating 4 mg PO Q8HP PRN #20 tab.rapdis 11/25/20 tablet Azithromycin [Z-Richard 250mg Tab*] 250 mg PO UD DOSE PK #6 tab 01/08/21 Brompheniramine/Pseudoephed/Dm 5 ml PO Q6HP PRN #240 syrup 01/08/21 [Bromfed Dm Cough Syrup] predniSONE [Deltasone 10mg tablet] 10 mg PO BID 5 Days #10 tab 01/08/21 Azithromycin [Z-Richard 250mg Tab*] 250 mg PO UD DOSE PK #6 tab 02/01/21 Brompheniramine/Pseudoephed/Dm 5 ml PO Q6HP PRN #240 ml 02/01/21 [Bromfed Dm Cough Syrup] Allergies Allergy/AdvReac Type Severity Reaction Status Date / Time [facility] Allergy Mild Verified 11/25/20 15:21 - Worker's Comp Is this a Worker's Comp case?: No [facility] History - Hepatitis A Screen Drug use history?: No High risk sexual behaviors?: No History of sexually
[2021-02-01 14:47] VITALS: BP 0/0; PULSE 74; RESP 16; TEMP 37; O2SAT 98
[2021-02-01 14:53] LABS: UTC Strep Screen (Rapid) Negative (Negative)
== END 2021-02-01 14:48 | disposition home or self-care (01) ==
PROVIDERS: Emergency Provider Nurse Practitioner Family; PCP Nurse Practitioner Family
DX: J02.9 Acute pharyngitis, unspecified (principal); Z20.822 Contact with and (suspected) exposure to COVID-19
CPT/HCPCS: 87880; 99203; C9803; G0463; U0003; U0005

== ENCOUNTER 2021-02-24 17:18 | Emergency (ER) | payer BC, SELFPAY ==
[2021-02-24 17:21] VITALS: BP 144/87; PULSE 81; RESP 17; TEMP 37; O2SAT 99; BMI 24.0
[2021-02-24 18:00] VITALS: BP 131/80; PULSE 73; O2SAT 97
--- NOTE | 2021-02-24 18:07 | HMH.EDGENADL ---
ED Disposition Clinical Impression: Corneal abrasion Qualifiers: Encounter type: initial encounter Laterality: right Qualified Code(s): S05.01XA - Injury of conjunctiva and corneal abrasion without foreign body, right eye, initial encounter Disposition: Home, Self-Care Condition on Discharge: Good Referrals: Cece Dillard APRN [Primary Care Provider] - - Critical Care Critical Care Time: No Attestation: On 02/24/21, the high probability of a clinically significant, sudden or life threatening deterioration of the following system(s) required my full and direct attention, intervention and personal management. The time I documented below is in addition to time spent performing reported procedures but includes the following listed in this critical care notation. Medical Decision Making - Medical Records Medical records reviewed: Yes: I reviewed the patient's medical records. - [place] Inquiry Pt receiving controlled substance: No Vital Signs: 02/24/21 17:21 02/24/21 18:00 02/24/21 18:30 Temperature 98.6 F Temperature Source Oral Pulse Rate 73 75 Pulse Rate [Right Radial] 81 Respiratory Rate 17 Blood Pressure 131/80 125/81 Blood Pressure [Right Arm] 144/87 H Blood Pressure Mean [Right Arm] 106 Blood Pressure Source [Right Arm] Automatic Cuff Blood Pressure Position [Right Arm] Sitting 02 Sat by Pulse Oximetry 99 97 97 Oxygen Delivery Method Room Air Medical Decision Narrative: Patient is a 25-year-old male presents to the ED today for further evaluation of right eye redness and pain after getting sawdust in it. Differential diagnosis includes open globe fracture, acute angle-closure glaucoma, conjunctivitis, renal abrasion. Will further evaluate with tetracaine drops, fluorescein stain. She is otherwise well-appearing in no acute distress with stable vital signs. 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 Patient was given enough erythromycin ointment to help, and eye redness to perform should he need more rinse out. Patient otherwise given general return precautions return to ED with any new or worsening symptoms and is verbalized understanding with this plan. General Adult HPI - General Chief complaint: Eye Problems Stated complaint: FB in R Eye Time Seen by Provider: 02/24/21 18:00 Mode of Arrival: Ambulatory Limitations: No Limitations Description of Symptoms (Recalled from ER Triage Doc. by RN): Pt states that he was sawing tree branches and thinks he got saw dust in his eye. He has tried to wash it out with water with no luck. States that it feels like itching, burning, watering, and making his nose run. - History of Present Illness HPI narrative: Patient is a 25-year-old male presents the ED today for further evaluation of right eye blurry vision. Patient states that he was cutting limbs and injury, states that sawdust fell down onto his face and he felt pain in his right eye, states that he has felt this since that time attempted to flush it out at home but was unable to relieve the tenderness. She states that he has been otherwise well recently with no history of eye problems. - Related Data Previous Rx's Medication Instructions Recorded Dicyclomine HCl [Bentyl 10mg 10 mg PO BIDP PRN #30 cap 09/28/20 capsule] albuterol sulfate 90 mcg/actuation 1 puff INHALATION Q6H #6.7 g 10/21/20 aerosol inhaler omeprazole magnesium 20 mg 20 mg PO DAILY #30 tab 11/01/20 tablet,delay
[2021-02-24 18:30] VITALS: BP 125/81; PULSE 75; O2SAT 97
[2021-02-24 19:15] VITALS: BP 135/75; PULSE 80; RESP 20; TEMP 36.8; O2SAT 99
== END 2021-02-24 19:20 | disposition home or self-care (01) ==
PROVIDERS: Emergency Provider Student in an Organized Health Care Education/Training Program; PCP Nurse Practitioner Family
DX: S05.01XA Injury of conjunctiva and corneal abrasion without foreign body, right eye, initial encounter (principal); W45.8XXA Other foreign body or object entering through skin, initial encounter; Y92.89 Other specified places as the place of occurrence of the external cause
CPT/HCPCS: 99281

== ENCOUNTER 2021-03-21 19:31 | Emergency (ER) | payer BC, SELFPAY ==
[2021-03-21 19:49] VITALS: BP 131/72; PULSE 77; RESP 14; TEMP 36.9; O2SAT 99; BMI 24.7
--- NOTE | 2021-03-21 21:36 | HMH.EDUTC ---
[facility] [place] Disposition Clinical Impression: Laceration of left thumb Qualifiers: Encounter type: initial encounter Damage to nail status: without damage Foreign body presence: without foreign body Qualified Code(s): S61.012A - Laceration without foreign body of left thumb without damage to nail, initial encounter Disposition: Home, Self-Care Condition on Discharge: Good Additional Instructions: Keep the wound clean and dry. Keep a dressing on it if you are going to be getting it dirty. Watch the for signs of infection, such as redness, swelling, drainage, fever. etc. Take the antibiotics (augmentin) as directed. Take tylenol or ibuprofen for pain. Follow up with your regular doctor. Return in 10 days to have the sutures removed. GO TO THE ER FOR ANY WORSENING SYMPTOMS OR CONCERNS. Prescriptions: Amoxicillin/Potassium Clav [Augmentin 875-125 Tablet] 1 tab PO Q12H 10 Days #20 tab Transmission Status: Received by [id number] Referrals: Cece Dillard APRN [Primary Care Provider] - Forms: Work/School Release Time of Disposition: 21:39 Medical Decision Making - Medical Records Medical records reviewed: No: I reviewed the patient's medical records. - [place] Inquiry Pt receiving controlled substance: No Vital Signs: 03/21/21 19:49 03/21/21 21:46 Temperature 98.4 F 98.4 F Temperature Source Oral Pulse Rate 77 Pulse Rate [Left] 77 Respiratory Rate 14 14 Blood Pressure 131/72 Blood Pressure [Right Arm] 131/72 Blood Pressure Mean [Right Arm] 91 02 Sat by Pulse Oximetry 99 Orders (Tests/Meds): ED MEDICATIONS Discontinued Medications Generic Name Dose Route Start Last Admin Trade Name James PRN Reason Stop Dose Admin Lidocaine HCl 5 ml 03/21/21 21:38 03/21/21 21:38 Lidocaine 1% 5ml Pf Vial IJ 03/21/21 21:39 5 ml ONCE ONE Administration [facility] [place] HPI - General Stated complaint: lt thumb lac Ao03/21/21 Time Seen by Provider: 03/21/21 20:00 Mode of Arrival: Ambulatory Source of Information: Patient Limitations: No Limitations Description of Symptoms (Recalled from Triage Doc. by RN): pt states he cut the back of his L thumb about thirty minutes ago on a piece of machinery. HEENT Symptoms (Recalled from RN notes): No Resp Symptoms (Recalled from RN notes): No Skin Symptoms (Recalled from RN notes): Yes (lac to the back of L thumb) MS Symptoms (Recalled from RN notes): No Functional Status (Recalled from RN notes): na - History of Present Illness Provider Complaint: He was taking a wheel off his car when he caught his thumb on a sharp piece of aluminum on his rim. This resulted in him getting a laceration to the back of his left thumb. This happened right before he came in today. - Related Data Previous Rx's Medication Instructions Recorded Dicyclomine HCl [Bentyl 10mg 10 mg PO BIDP PRN #30 cap 09/28/20 capsule] albuterol sulfate 90 mcg/actuation 1 puff INHALATION Q6H #6.7 g 10/21/20 aerosol inhaler omeprazole magnesium 20 mg 20 mg PO DAILY #30 tab 11/01/20 tablet,delayed release ondansetron 4 mg disintegrating 4 mg PO Q8HP PRN #20 tab.rapdis 11/25/20 tablet Azithromycin [Z-Richard 250mg Tab*] 250 mg PO UD DOSE PK #6 tab 01/08/21 Brompheniramine/Pseudoephed/Dm 5 ml PO Q6HP PRN #240 syrup 01/08/21 [Bromfed Dm Cough Syrup] predniSONE [Deltasone 10mg tablet] 10 mg PO BID 5 Days #10 tab 01/08/21 Azithromycin [Z-Richard 250mg Tab*] 250 mg PO UD DOSE PK #6 tab 02/01/21 Brompheniramine/Pseudoephed/Dm 5 ml PO Q6HP PRN #240 ml 02/01/21 [Bromfed Dm Cough Syrup] Amoxicillin/Potassium Clav 1 tab PO Q12H 10 Days #20 tab 03/21/21 [Augmentin 875-125 Tablet] Allergies Allergy/AdvReac Type Severity Reaction Status Date / Time cefaclor [From [facility]] Allergy Mild Verified 11/25/20 15:21 - Worker's Comp Is this a Worker's Comp case?: No [facility] History - Hepatitis A Screen Drug use history?: No High risk sexual behaviors?: No History of sexual
[2021-03-21 21:46] VITALS: BP 131/72; PULSE 77; RESP 14; TEMP 36.9
== END 2021-03-21 21:47 | disposition home or self-care (01) ==
PROVIDERS: Emergency Provider Nurse Practitioner Family; PCP Nurse Practitioner Family
DX: S61.012A Laceration without foreign body of left thumb without damage to nail, initial encounter (principal); W26.9XXA Contact with unspecified sharp object(s), initial encounter; Y92.019 Unspecified place in single-family (private) house as the place of occurrence of the external cause
CPT/HCPCS: 12002; 99202; G0463

== ENCOUNTER → 2021-05-18 17:26 | Outpatient (CLI) | payer BC, SELFPAY | PROVIDERS: PCP Nurse Practitioner Family; Visit Provider Nurse Practitioner | DX: U07.1 COVID-19 (principal) | CPT/HCPCS: C9803; U0003; U0005 ==

== ENCOUNTER 2023-04-06 00:30 | Emergency (ER) | payer BC, SELFPAY ==
[2023-04-06 00:31] VITALS: BP 150/77; PULSE 84; RESP 18; TEMP 36.4; O2SAT 100; BMI 24.0
--- NOTE | 2023-04-06 00:43 | HMH.EDGENADL ---
Discharge Plan Disposition Patient Disposition: Home, Self-Care Chief Complaint: Medical Clearance Prescriptions Prescriptions: No Action Viberzi 100 mg tablet 100 mg PO toocpcmgkszcdvr-beshggzuq-XD [Bromfed DM] 2-30-10 mg/5 mL syrup 5 ml PO Q4-6H PRN (Reason: cough and congestion) Qty: 118 0RF albuterol sulfate [Ventolin HFA] 90 mcg/actuation HFA aerosol inhaler 1 puff INHALATION Q6H Qty: 6.7 0RF Rx Instructions: administer with spacer dicyclomine 10 MG capsule 10 mg PO BIDP PRN (Reason: Cramping) Qty: 30 0RF Referrals Follow up/Referrals: Azul Conde APRN [Primary Care Provider] - See instructions Clinical Impressions Clinical Impression: Medical clearance for incarceration Discharge ED Provider: Popeye [place] General Adult HPI General Chief complaint: Medical Clearance Stated complaint: medical clearance Time Seen by Provider: 04/06/23 00:35 Mode of Arrival: Ambulatory Source of Information: Patient and Law Enforcement Limitations: No Limitations Description of Symptoms (Recalled from ER Triage Doc. by RN): Patient arrived in custody of police for medical clearance. Patient is allegedly intoxicated. Patient verbalizes no complaints at this time, does admit to smoking a little bit of weed . History of Present Illness HPI narrative: 27-year-old male no relevant medical history presenting with medical clearance for incarceration. Allegedly being brought in for DUI. Patient denies drinking alcohol, states that he smoked earlier in the day. No wreck, no trauma, no current complaints. Related Data Home Medications Medication Instructions Recorded Confirmed eluxadoline 100 mg tablet (Viberzi) 100 mg PO 06/04/21 06/04/21 Previous Rx's Medication Instructions Recorded dicyclomine 10 mg capsule 10 mg PO BIDP PRN Cramping #30 caps 09/28/20 albuterol sulfate 90 mcg/actuation 1 puff inhalation Q6H #6.7 grams 10/21/20 aerosol inhaler (Ventolin HFA) zvmbszfzegfcoyh-aeytrapjsignlfu-AO 5 ml PO Q4-6H PRN cough and 06/04/21 2 mg-30 mg-10 mg/5 mL oral syrup congestion #118 mL (Bromfed DM) Allergies Allergy/AdvReac Type Severity Reaction Status Date / Time cefaclor [From [facility]] Allergy Mild Verified 06/04/21 18:41 [facility] Disclaimer: The information contained in this section may have been updated after the patient was seen, as this information can be updated by other users. Social History Smoking Status: Current every day smoker tobacco type: cigarettes packs per day: 1 and e-cigarettes second hand exposure: No alcohol intake: never current occupational status: other Travel in the last 8 weeks: None ROS Obtained: Yes All systems reviewed & no additional complaints except as documented Physical Exam General General appearance: alert and in no apparent distress Head Head exam: atraumatic and normocephalic Eye Eye exam: Present normal appearance, PERRL and EOMI ENT ENT exam: Present mucous membranes moist Neck Neck exam: Present normal inspection, full ROM and trachea midline Respiratory Respiratory exam: Absent respiratory distress, wheezes, stridor, accessory muscle use or prolonged expiratory phase Cardiovascular Cardiovascular exam: Present normal rhythm Abdominal Exam Abdominal exam: Present soft; Absent distention, tenderness, guarding, rebound, rigidity or normal bowel sounds Extremities Exam Extremities exam: Absent edema Neurological Exam Neurological exam: Present alert, oriented X3, CN II-XII intact and normal gait; Absent motor sensory deficit Skin Skin exam: Present warm and dry; Absent diaphoresis or erythema Medical Decision Making Medical Records Medical records reviewed: Yes I reviewed the patient's medical records. [place] Inquiry Pt receiving controlled substance: No [place] was queried for this patient: No Vital Signs: 04/06/23 00:31 Temperature 97.5 F L Temperature Source Oral Pulse Rate [Left Radial] 84 Resp
[2023-04-06 00:59] VITALS: BP 148/73; PULSE 80; RESP 18; TEMP 36.4; O2SAT 100
== END 2023-04-06 01:00 | disposition home or self-care (01) ==
PROVIDERS: Emergency Provider Emergency Medicine; PCP Nurse Practitioner Family
DX: F17.210 Nicotine dependence, cigarettes, uncomplicated (principal); I10 Essential (primary) hypertension; E11.9 Type 2 diabetes mellitus without complications; R11.10 Vomiting, unspecified; R19.7 Diarrhea, unspecified
CPT/HCPCS: 99283

== ENCOUNTER 2023-11-07 18:00 | Outpatient (CLI) | payer MEDICAID, SELFPAY ==
[2023-11-07 22:07] LABS: Basophils # 0.1 K/mm3 (0-0.2); Basophils % 1.1 % (0.1-2.0); Eosinophils # 0.2 K/mm3 (0.0-0.4); Eosinophils % 2.8 % (0.1-12.0); Hematocrit 44.1 % (42.0-52.0); Hemoglobin 14.5 g/dL (14.1-18.0); Lymphocytes # 1.8 K/mm3 (0.7-4.5); Lymphocytes % 27.7 % (10-50); Mean Corpuscular HGB Conc 32.8 g/dL (31.8-35.4); Mean Corpuscular Hemoglobin 30.2 pg (27.0-31.2); Mean Platelet Volume 8.6 fl (7.4-10.4); Monocytes # 0.5 K/mm3 (0.1-1.0); Monocytes % 8.4 % (1.7-9.3); Neutrophils # 3.8 K/mm3 (1.8-7.8); Neutrophils % 60.1 % (37.0-80.0); Platelet Count 289 K/mm3 (142-424); Red Blood Count 4.79 M/mm3 (4.60-6.20); Red Cell Distribution Width 13.6 % (11.5-17.5); White Blood Count 6.4 K/mm3 (4.8-10.8)
[2023-11-07 22:11] LABS: Chloride 106 mmol/L (98-107); Potassium 4.4 mmoL/L (3.5-5.1); Sodium 141 mmol/L (136-145)
[2023-11-07 22:14] LABS: Alanine Aminotransferase 15 U/L (12-78); Albumin Level 4.3 g/dl (3.5-5.0); Albumin/Globulin Ratio 1.4 (1.1-1.8); Alkaline Phosphatase 80 U/L (38-126); Anion Gap 11.4 mEq/L (5-15); Aspartate Amino Transferase 24 U/L (17-59); Bilirubin,Total 0.3 mg/dl (0.2-1.3); Blood Urea Nitrogen 15 mg/dl (9-20); Carbon Dioxide 28 mmol/L (22.0-30.0); Cholesterol 177 mg/dl (140-200); Estimated Glomerular Filt Rate 90 ml/min (>60); GFR (African American) 108 ML/MIN (>60); Total Protein,Serum 7.3 g/dl (6.3-8.2); Triglycerides 104 mg/dl (30-150); VLDL Cholesterol 21 mg/dL (0-40)
[2023-11-07 22:15] LABS: Calcium 9.5 mg/dl (8.4-10.2); Chol/HDL Ratio 3.3 (1-3.5); Glucose 99 mg/dl (74-100); HDL Cholesterol 53 mg/dl (40-60)
[2023-11-07 22:22] LABS: Hemoglobin A1C 4.9 % (4.0-6.0)
[2023-11-07 22:30] LABS: Free T4 (Free Thyroxine) 0.94 ng/dl (0.78-2.19)
[2023-11-07 22:45] LABS: Thyroid Stimulating Hormone 4.12 uIU/mL (0.465-4.68)
[2023-11-17 16:30] LABS: 1,25 Dihydroxy Vitamin D 32 pg/mL (.); 1,25-Dihydroxy, Vitamin D-2 <10 pg/mL (.); 1,25-Dihydroxy, Vitamin D-3 32 pg/mL (.)
== END 2023-11-07 23:59 | disposition home or self-care (01) ==
LOC: LAB.DROPOF 11-08 08:34
PROVIDERS: PCP Nurse Practitioner Acute Care; Visit Provider Nurse Practitioner Acute Care
DX: F31.32 Bipolar disorder, current episode depressed, moderate (principal)
CPT/HCPCS: 80050; 80053; 80061; 82652; 83036; 84439; 84443; 85025

== ENCOUNTER 2025-05-12 16:20 | Outpatient (CLI) | payer MEDICAID, SELFPAY ==
--- NOTE | 2025-05-12 16:23 | XR_ITS ---
PROCEDURE INFORMATION: Exam: XR Left Foot Exam date and time: 05/12/2025 4:26 PM Age: 29 years old Clinical indication: Pain; Foot; Left; Additional info: Pain in side of foot TECHNIQUE: Imaging protocol: Radiologic exam of the left foot. Views: 3 or more views. COMPARISON: No relevant prior studies available. FINDINGS: Bones/joints: No acute fracture. No dislocation. Soft tissues: Unremarkable. IMPRESSION: No fracture. If pain persists, suggest splinting and follow up radiographs in 7-10 days.
== END 2025-05-12 23:59 | disposition home or self-care (01) ==
LOC: RAD 16:21
PROVIDERS: Visit Provider Nurse Practitioner
DX: M79.672 Pain in left foot (principal)
CPT/HCPCS: 73630